=== PATIENT | female | born 1975 | race Caucasian/White ===

== ENCOUNTER 2018-06-18 17:57 | Inpatient (IN) | payer OTHER ==
[~2018-06-18] VITALS: Ht 165.1 cm; Wt 93.4 kg
[2018-06-18 18:07] VITALS: BP 109/70
[2018-06-18 18:17] VITALS: BP 138/76
--- NOTE | 2018-06-18 18:24 | NUR ---
PT AMBULATED TO ER BED 06
--- NOTE | 2018-06-18 18:30 | NUR ---
Note irwin in EDM - 06/18/18 at 1842 by PAULINA 42 YO F BIB SELF W/ C/ RIGHT LEG PAIN W/ "MESQUINO?", WART?. PT HAS A BLISTER ON THE RIGHT UPPER THIGH THAT APPEARS ERYTHEMOUS W/ EDEMA AND POSS PUS. PT REPORTS FEELING VERY HOT, DENIES FEVERS/N/V/D. DENIES A BURN OR INJUIRY. 03/12 LEG PAIN.
--- NOTE | 2018-06-18 18:30 | NUR ---
57 YO F BIB W/ C/O DULL CHEST PAIN RIGHT SUBSTERNAL 10/10. PT RPEORTS THAT THE PAIN STARTED ABOUT 30 MINS DIRECT SUPPORT PROFESSIONAL CAREGIVER WHILE IN THE CAR. PT REPORTS LEFT ARM NUMBNESS. DENIES N/V. AAOX4, GCS 15. AMBULATORY W/ STEADY GAIT. RR EVEN AND UNLABORED, SPEAKING IN FULL, COMPLETE SENTENCES. SKIN WARM, AND DRY, COLOR APPROPRIATE FOR ETHNICITY. PT BED LOW, LOCKED, BEDRAIL UP X 1, ER MD AWARE AND NOTIFIED OF PT STATUS. HX DENIES, MOTHER IN HER 50S OF A HEART ATTACK, ABNORMAL EKG IN THE PAST RX DENIES
--- NOTE | 2018-06-18 18:43 | NUR ---
Patient being evaluated by physician at bedside.
[2018-06-18] MEDS ORDERED: ASPIRIN 81 MG TAB.CHEW PO ONE (18:45)
--- NOTE | 2018-06-18 19:20 | NUR ---
GOT REPORT FROM HAYDEE RN, PT AAO X4, GCS 15, RESPIRATIONS EVEN AND UNLABORED, BL LUNG CLEAR. SKIN WARM/PINK/DRY, +PMSC. VSS, NO ACUTE DISTRESS AT THIS TIME. WILL CONTINE TO MONITOR
[2018-06-18] MEDS ORDERED: DIAZEPAM 5 MG TAB PO ONE (20:05)
[2018-06-18] MEDS ORDERED: ASPIRIN 325 MG TAB PO ONE (20:05)
--- NOTE | 2018-06-18 20:12 | NUR ---
PT TAKEN TO RADIOLOGY
--- NOTE | 2018-06-18 20:18 | NUR ---
PT RETURN FROM RADIOLOGY
[2018-06-18 20:43] LABS: BASOPHILS % (AUTO) 0.5 % (0.0-2.0); EOSINOPHILS # (AUTO) 0.1 K/uL (0-0.4); EOSINOPHILS % (AUTO) 2.1 % (0.0-4.0); HEMATOCRIT 43.6 % (36-48); HEMOGLOBIN 14.2 g/dL (12.0-16.0); LYMPHOCYTES # (AUTO) 2.1 K/uL (2.5-16.5); LYMPHOCYTES % (AUTO) 29.3 % (20.5-51.1); MEAN CORPUSCULAR HEMOGLOBIN 28 pg (27-31); MEAN CORPUSCULAR HGB CONC 33 g/dL (33-37); MEAN CORPUSCULAR VOLUME 85.2 fL (80-94); MONOCYTES # (AUTO) 0.6 K/uL (0.8-1.0); MONOCYTES % (AUTO) 8.7 % (1.7-9.3); NEUTROPHILS # (AUTO) 4.2 K/uL (1.8-7.7); NEUTROPHILS % (AUTO) 59.4 % (42.2-75.2); PLATELET COUNT (AUTO) 233 K/uL (140-450); RED BLOOD CELL COUNT(AUTO) 5.12 MIL/uL (4.20-5.40); RED CELL DISTRIBUTION WIDTH 14.5 % (11.6-13.7); WHITE BLOOD COUNT (AUTO) 7.2 K/uL (4.8-10.8)
--- NOTE | 2018-06-18 21:07 | NUR ---
Pupils equal and reactive to light bilaterally. No facial droop noted. No smile deficit noted. Speech normal for patient. Patient is alert and oriented to person, place, time and event. Bilateral hand seal extrusion operator equal. Bilateral foot push equal.
[2018-06-18 21:45] LABS: ALBUMIN 3.8 g/dL (3.4-5.0); ANION GAP 13.2 (8-16); CARBON DIOXIDE 28.7 mmol/L (21-32); CREATININE 0.7 mg/dL (0.6-1.3); POTASSIUM 3.9 mmol/L (3.5-5.1); TOTAL BILIRUBIN 0.2 mg/dL (0.0-1.0)
[2018-06-18] MEDS ORDERED: ONDANSETRON 4 MG/2 ML VIAL IM/IVP PRN (21:55)
[2018-06-18] MEDS ORDERED: DOCUSATE SODIUM 100 MG GELCAP PO PRN (21:55)
[2018-06-18] MEDS ORDERED: ACETAMINOPHEN 325 MG TAB PO PRN (21:55)
[2018-06-18] MEDS ORDERED: HYDROcodone/APAP 5/325 MG 1 TAB TAB PO PRN (21:55)
[2018-06-18] MEDS ORDERED: LORazepam 2 MG/ML VIAL IM/IVP PRN (21:55)
[2018-06-18] MEDS ORDERED: ZOLPIDEM 5 MG TAB PO PRN (21:55)
--- NOTE | 2018-06-18 21:59 | NUR ---
Patient will be admitted to care of JENNIFER. Admited to TELE. Will go to room 108B. Belongings list completed. Report to
[2018-06-18 22:10] VITALS: BP 110/80
--- NOTE | 2018-06-18 22:10 | NUR ---
RECEIVED PT FROM ER VIA WHEELCHAIR. PT A, A,OX4. PT ON TELE FOR CHEST PAIN WITH TINGLING/NUMBNESS ON THE LEFT ARM. PT AMBULATORY. PT UPON ASSESSMENT SAID PAIN IS 1/10 TOLERABLE. WAS GIVEN MEDS AT THE ER DEPT EARLIER. NO SOB. NO RESPIRATORY DISTRESS. WILL CONTINUE TO MONITOR.
[2018-06-18 22:34] LABS: MAGNESIUM 2.1 mg/dL (1.8-2.4); PHOSPHORUS 3.8 mg/dL (2.5-4.9); THYROID STIMULATING HORMONE 1.68 uIU/mL (0.34-3.74)
[2018-06-18 22:37] LABS: PROTHROMBIN TIME 9.7 secs (10.8-13.4)
[2018-06-18] MEDS: NACL 0.9% 1,000 ML IV SCH (22:57)
[2018-06-18 23:05] LABS: APPEARANCE,URINE CLEAR (CLEAR); BILIRUBIN,URINE NEGATIVE (NEGATIVE); BLOOD, URINE 3+ (NEGATIVE); COLOR,URINE YELLOW (YELLOW); LEUKOCYTE ESTERASE ,URINE NEGATIVE (NEGATIVE); NITRITE, URINE NEGATIVE (NEGATIVE); PH,URINE 6.5 (5.0-9.0); UGLUCOSE NEGATIVE (NEGATIVE)
[2018-06-18 23:07] LABS: RBC,URINE 3-10 (FEW) /HPF (0-5); WBC,URINE 0-5 (RARE) /HPF (0-5)
[2018-06-18 23:08] LABS: CANNABINOID, URINE NEG. ng/mL (NEG <=50); COCAINE, URINE NEG. ng/mL (NEG <=300); OPIATE, URINE NEG. ng/mL (NEG <=2000); PHENCYCLIDINE SCREEN,URINE NEG. ng/mL (NEG <=25)
[2018-06-18 23:17] LABS: BARBITURATE, URINE NEG. ng/ml (NEG <=200); BENZODIAZEPINE, URINE NEG. ng/mL (NEG <=200)
--- NOTE | 2018-06-19 | NUR ---
PT HAS NO COMPLAINTS AT THIS TIME, SLEEPING COMFORTABLE IN BED ON SEMI LUIS'S POSITION.
[2018-06-19] MEDS ORDERED: INFLUENZA VIRUS VACCINE QUAD 0.5 ML SYR IMVAC PRN (00:55)
[2018-06-19 04:00] VITALS: BP 90/60
--- NOTE | 2018-06-19 04:00 | NUR ---
BP 84/64 [facility]. MADE AWARE. PLACED IN [place]. WILL MONITOR
--- NOTE | 2018-06-19 04:30 | NUR ---
RECHECKED STILL /64. WILL RECHECK AGAIN LATER.
[2018-06-19 06:36] LABS: BASOPHILS % (AUTO) 0.2 % (0.0-2.0); EOSINOPHILS # (AUTO) 0.1 K/uL (0-0.4); EOSINOPHILS % (AUTO) 2.2 % (0.0-4.0); HEMATOCRIT 41.7 % (36-48); HEMOGLOBIN 13.6 g/dL (12.0-16.0); LYMPHOCYTES # (AUTO) 1.7 K/uL (2.5-16.5); LYMPHOCYTES % (AUTO) 33.4 % (20.5-51.1); MEAN CORPUSCULAR HEMOGLOBIN 28 pg (27-31); MEAN CORPUSCULAR HGB CONC 33 g/dL (33-37); MEAN CORPUSCULAR VOLUME 85.5 fL (80-94); MONOCYTES # (AUTO) 0.5 K/uL (0.8-1.0); MONOCYTES % (AUTO) 9.2 % (1.7-9.3); NEUTROPHILS # (AUTO) 2.7 K/uL (1.8-7.7); PLATELET COUNT (AUTO) 216 K/uL (140-450); RED BLOOD CELL COUNT(AUTO) 4.88 MIL/uL (4.20-5.40); RED CELL DISTRIBUTION WIDTH 14.7 % (11.6-13.7)
--- NOTE | 2018-06-19 06:58 | NUR ---
BP IMPROVED AT 96/65 [facility]. WILL ENDORSE TO NEXT SHIFT 1 EPISODE OF LOW BLOOD PRESSURE. WILL ENDORSE TO NEXT SHIFT FOR CONTINUITY OF CARE.
--- NOTE | 2018-06-19 07:15 | NUR ---
PT REPORT RECEIVED FROM PARAOPTOMETRIC NURSE AT BEDSIDE. PT IS ALERT AND AWAKE, NO S/S OF DISTRESS, SOB, OR C/O PAIN AT THIS TIME. NO C/O CHEST PAIN, HOWEVER PT REPORTS TINGLING IN HER LUE. PT IS ON ROOM AIR, SKIN INTACT. IV SITE NOTED ON THE LAC, 20 G, INFUSING NS 70 ML/HR. PT IS AMBULATORY, CALL LIGHT IS WITHIN REACH. WILL CONTINUE TO MONITOR PT.
[2018-06-19 08:00] VITALS: BP 96/55
--- NOTE | 2018-06-19 08:13 | NUR ---
PATIENT HAS BEEN SCREENED AND CATEGORIZED MODERATE NUTRITION RISK. PATIENT WILL BE SEEN WITHIN 3-5 DAYS OF ADMISSION. 06/21/18 06/23/[address]
[2018-06-19] MEDS ORDERED: ASPIRIN 81 MG TAB.CHEW PO SCH (09:00)
--- NOTE | 2018-06-19 09:30 | NUR ---
PT COMFORTABLE IN BED, NO S/S OF DISTRESS, NO C/O PAIN OR SOB. CALL LIGHT WITHIN REACH. WILL CONTINUE TO MONITOR PT.
[2018-06-19 10:46] LABS: CARBON DIOXIDE 26.7 mmol/L (21-32); CREATININE 0.6 mg/dL (0.6-1.3); POTASSIUM 3.7 mmol/L (3.5-5.1)
[2018-06-19 10:50] LABS: CHOL/HDL RATIO 4.6 (1-4.5)
[2018-06-19] MEDS: NACL 0.9% 1,000 ML IV SCH (11:10)
[2018-06-19 12:00] VITALS: BP 97/64
--- NOTE | 2018-06-19 14:15 | NUR ---
PT REFUSED TROPONIN LAB DRAW. SHE IS CURRENTLY GETTING ECHOCARDIOGRAM WITH BUBBLE STUDY.
[2018-06-19] MEDS ORDERED: NITR100C7 PO (14:24)
[2018-06-19] MEDS ORDERED: ASPI81CT95 PO (14:24)
--- NOTE | 2018-06-19 14:40 | NUR ---
PT IS VERBALIZING WANTING TO LEAVE AMA. SHE STATES THAT SHE WOULD FEEL BETTER AT HOME, AND SHE DOES NOT WANT TO STAY HERE AT THE HOSPITAL ANOTHER NIGHT. SHE ALSO CITED THE NOISE AND SMELL OF A HOSPITAL ENVIRONMENT BEING TOO BOTHERSOME TO HER. PT WAS EDUCATED BY THE MD RISKS OF LEAVING BEFORE COMPLETING TREATMENT. PT STILL INSISTED ON LEAVING. PT SIGNED THE AMA FORM. IV SITE WAS DC'D, WRIST BAND REMOVED. PT LEFT WITH ALL HER BELONGINGS ACCOMPANIED BY HER .
== END 2018-06-19 15:05 | disposition left against medical advice (07) | DRG 313 ==
LOC: MED 17:57 → MTU 22:00
PROVIDERS: ADMIT General Practice; ATTEND General Practice
DX: R07.89 Other chest pain (principal); N39.0 Urinary tract infection, site not specified; G43.909 Migraine, unspecified, not intractable, without status migrainosus; E86.0 Dehydration; R31.9 Hematuria, unspecified; E66.9 Obesity, unspecified; I95.9 Hypotension, unspecified; Z53.21 Procedure and treatment not carried out due to patient leaving prior to being seen by health care provider; Z82.49 Family history of ischemic heart disease and other diseases of the circulatory system; Z88.8 Allergy status to other drugs, medicaments and biological substances; Z68.34 Body mass index [BMI] 34.0-34.9, adult
CPT/HCPCS: 36415; 70450; 71045; 80048; 80053; 80305; 81001; 82550; 82553; 83036; 83690; 83735; 83880; 84100; 84443; 84484; 84702; 85025; 85379; 85610; 85730; 87081; 87086; 93005; 99285; J0696; J1644; J7030; J7060; Q0092